=== PATIENT | male | born 1975 | race Two or more races ===

== ENCOUNTER 2018-10-10 09:14 | Outpatient (CLI) | payer OTHER ==
[~2018-10-10 09:14] MED LIST: CLINDAMYCIN HCL1 GM; COZAAR50 MG; DICY10CA; ENALAPRIL MALEAT5 MG; INTESTINEX1 CA1; INTESTINEX1 CA1 PO; LEVAQUIN500 MG; PEPCID20 MG
== END 2018-10-10 09:26 | disposition home or self-care (01) ==
LOC: NUCLEAR 09:14
DX: I49.9 Cardiac arrhythmia, unspecified (principal); R00.0 Tachycardia, unspecified

== ENCOUNTER 2019-03-23 13:50 | Emergency (ER) | payer OTHER ==
[~2019-03-23] VITALS: Ht 162.6 cm; Wt 72.6 kg
[2019-03-23] MEDS ORDERED: ZANTAC300 MG (14:38)
== END 2019-03-23 19:13 | disposition home or self-care (01) ==
LOC: ER 13:50
DX: N20.0 Calculus of kidney (principal); R10.32 Left lower quadrant pain; K76.0 Fatty (change of) liver, not elsewhere classified

== ENCOUNTER 2023-07-15 12:52 | Emergency (ER) | payer OTHER ==
[~2023-07-15] VITALS: Ht 160 cm; Wt 79.4 kg
[~2023-07-15 12:52] MED LIST changes: +ZANTAC300 MG
[2023-07-15 17:51] LABS: PH,URINE 5.5 (5.0-8.0); URINE APPEARANCE Clear; URINE BILIRRUBIN Negative (NEGATIVE); URINE BLOOD Trace; URINE COLOR Dark Yellow; URINE GLUCOSE Negative (NEGATIVE); URINE LEUKOCYTE Negative; URINE NITRATE Negative; URINE PROTEIN Trace (NEGATIVE)
[2023-07-15 17:58] LABS: URINE EPITHELIAL CELLS 5.5 uL (0.0-38.8); URINE RBC 18.5 uL (0.0-20.8); URINE WBC 4.6 uL (0.0-23.2)
[2023-07-15 18:13] LABS: CALCIUM 9.5 mg/dL (8.5-10.1); CREATININE SERUM 1.3 mg/dL (0.70-1.30); GFR 59.43; POTASSIUM 3.65 mEq/L (3.5-5.1)
[2023-07-15 19:35] LABS: HEMATOCRIT 47.4 % (39.0-48.0); HEMOGLOBIN 16.6 g/dL (13-16.00); MEAN CELL VOLUME 103.6 fL (80.0-100.00); MEAN CORPUSCULAR HEMOGLOBIN 36.2 pg (27.00-32.0); MEAN CORPUSCULAR HGB CONC 34.9 g/dl (32.0-36.0); PLATELET COUNT 176 K/uL (150-450); RED BLOOD COUNT 4.58 M/uL (4.00-6.00); RED CELL DISTRIBUTION WIDTH 14.1 % (11.5-14.5)
== END 2023-07-15 21:12 | disposition home or self-care (01) ==
LOC: ER 12:53
PROVIDERS: Emergency Medicine
DX: R10.9 Unspecified abdominal pain (principal); Z88.0 Allergy status to penicillin; I10 Essential (primary) hypertension; N20.0 Calculus of kidney